=== PATIENT | male | born 1995 | race Two or more races ===

== ENCOUNTER 2018-11-02 01:52 | Emergency (ER) | payer OTHER ==
[2018-11-02] MEDS ORDERED: NORMAL SALINE 1000 ML 1,000 ML IV ONE (02:35)
[2018-11-02] MEDS ORDERED: METOCLOPRAMIDE HCL INJ/PF 10 MG/2 ML SDV IV ONE (02:35)
--- NOTE | 2018-11-02 02:38 | ER Document Report ---
ED General - General Chief Complaint: Nausea/Vomiting Stated Complaint: NUMBNESS Notes: Patient is a pleasant 23-year-old male who presents with complaint of sudden onset of nausea and chills. This is followed closely by a headache. Symptoms started approximately 2 hours ago. Before the symptoms started he felt fine. All symptoms came on abruptly. No chest pain. No neck pain. No back pain. No abdominal pain. No diarrhea. No recent history of fever illness. He takes no medications and is otherwise healthy. This has never happened before. He denies any drug or alcohol use. No recent sick contacts. TRAVEL OUTSIDE OF THE [place] IN LAST 30 DAYS: No - Related Data Allergies/Adverse Reactions: No Known Allergies Allergy (Unverified 11/02/18 07:50) Past Medical History - Social History Smoking Status: Never Smoker Frequency of alcohol use: None Drug Abuse: None Family History: Reviewed & Not Pertinent Review of Systems - Review of Systems Notes: My Normal Review Basic REVIEW OF SYSTEMS: CONSTITUTIONAL : Denies fever, chills, or sweats. Denies recent illness. EENT: Denies eye, ear, throat, or mouth pain or symptoms. Denies nasal or sinus congestion. CARDIOVASCULAR: Denies chest pain. RESPIRATORY: Denies cough, cold, or chest congestion. Denies shortness of breath, difficulty breathing, or wheezing. GASTROINTESTINAL: Denies abdominal pain. Vomiting MUSCULOSKELETAL: Denies neck or back pain or joint pain or swelling. SKIN: Denies rash or skin lesions. NEUROLOGICAL: Denies altered mental status or loss of consciousness. Has a headache. Denies weakness or paralysis or loss of use of either side. Denies problems with gait or speech. Denies sensory or motor loss. ALL OTHER SYSTEMS REVIEWED AND NEGATIVE. Physical Exam - Vital signs Vitals: Temp Pulse Resp BP Pulse Ox 97.4 F 122 H 22 H 112/66 100 11/02/18 02:01 11/02/18 02:01 11/02/18 02:01 11/02/18 02:01 11/02/18 02:01 - Notes Notes: General Appearance: Well nourished, alert, cooperative, no acute distress, moderate obvious discomfort. Patient is diaphoretic Vitals: reviewed, See vital signs table. Head: no swelling or tenderness to the head Eyes: PERRL, EOMI, Conjuctiva clear Mouth: No decreasd moisture Throat: No tonsillar inflammation, No airway obstruction, No lymphadenopathy Neck: Supple, no neck tenderness, No thyromegaly Lungs: No wheezing, No rales, No rhonci, No accessory muscle use, good air exchange bilaterally. Heart: Tachycardic rate, Regular rythm, No murmur, no rub Abdomen: Normal BS, soft, No rigidity, No abdominal tenderness, No guarding, no rebound, no abdominal masses, no organomegaly Extremities: strength 5/5 in all extremities, good pulses in all extremities, no swelling or tenderness in the extremities, no edema. Skin: warm, dry, appropriate color, no rash Neuro: speech clear, oriented x 3, normal affect, responds appropriately to questions. Cranial nerves II through XII are intact. Patient has some obvious photophobia. Strength in all 4 extremities. No focal neurologic deficits on exam. Course - Re-evaluation Re-evalutation: 11/02/18 03:20 On reevaluation patient is feeling improved with nausea medicine. Heart rate is still slightly tachycardic but better than it was. He is currently receiving his IV fluid bolus. Lab work is pending. I did review the CT scan. I do not see evidence of bleeding at this time. I am awaiting radiologist official report. 11/02/18 06:30 Patient's lab work is back and does not show any abnormality other than his elevated white blood cell count which is not surprising that he came in diaphoretic and vomiting. His nausea is much from approved. He would like to drink some water. We will give him a dose of Zofran being that the effect of Reglan is probably going to wear off soon. He still has a little bit of a headache. I will give him a dose of Toradol. He continues be afebrile. Continues have full range of motion of his neck. Weekly currently looks very well and his vital signs have normalized and is no longer tachycardic. I therefore have low suspicion for meningitis and at this time do not feel need to go forward with lumbar puncture. - Vital Signs Vital signs: Temp Pulse Resp BP Pulse Ox 97.4 F 122 H 22 H 112/66 100 11/02/18 02:01 11/02/18 02:01 11/02/18 02:01 11/02/18 02:01 11/02/18 02:01 - Laboratory Result Diagrams: 11/02/18 03:13 11/02/18 03:13 Laboratory results interpreted by me: 11/02/18 11/02/18 03:13 03:13 WBC 18.0 H Seg Neutrophils % 88.8 H Lymphocytes % 6.7 L Absolute Neutrophils 16.0 H Glucose 119 H ALT 20 L - Transfer of Care Notes: 11/02/18 08:07 Patient is feeling improved. Patient looks well. Nausea is gone. Headache is improved after Toradol. Feel that he is safe to be discharged home. I informed him that he should continue to improve. I have prescribed some nausea medicine. I encouraged him to return to the ER if he has recurrent vomiting, recurring headaches, fevers, or if he feels like he is worsening in any way. Patient agrees with plan will be discharged home. Discharge - Discharge Clinical Impression: Vomiting Qualifiers: Vomiting type: unspecified Vomiting Intractability: intractable Nausea presence: with nausea Qualified Code(s): R11.2 - Nausea with vomiting, unspecified Headache Qualifiers: Headache type: unspecified Headache chronicity pattern: acute headache Intractability: not intractable Qualified Code(s): R51 - Headache Condition: Good Disposition: HOME, SELF-CARE Additional Instructions: Your laboratory evaluation was unremarkable except for an elevated white blood cell count. This could be related to stress in the body from the vomiting ot from an infection such as a viral infectrion or bacterial infection. Currently I do not see any further evidence of a bacterial infection. We did do a CT scan of your head when you first arrived to make sure there is no evidence of bleeding in your head being that all your symptoms started suddenly. Your CT scan is normal-appearing. Currently the remainder of your blood work is normal- appearing and your vital signs are normal and therefore we feel you are safe to be discharged home. Even though you are improved and you look well, we want you to still have a low threshold to return to the ER if you have any fevers, abdominal pain, recurring headaches, intractable vomiting, or any neck pain or neck stiffness. Prescriptions: Ondansetron [Zofran Odt 4 mg Tablet] 1 tab PO Q4H PRN #15 tab.rapdis PRN Reason: For Nausea/Vomiting
--- NOTE | 2018-11-02 03:21 | RADIOLOGY REPORT (SQ) ---
EXAM DESCRIPTION: CT HEAD WITHOUT IV CONTRAST COMPLETED DATE/TME: 11/02/2018 02:35 CLINICAL HISTORY: 23 years Male, headache COMPARISON: None. TECHNIQUE: No contrast. Coronal and sagittal reformat. This exam was performed according to our departmental dose-optimization program, which includes automated exposure control, adjustment of the mA and/or kV according to patient size and/or use of iterative reconstruction technique. FINDINGS: No hemorrhage or infarct. No mass, mass effect, or midline shift. Mild maxillary mucosal thickening includes a 1.5 cm left maxillary mucocele-retention cyst. Brain and extra-axial structures appear otherwise intact. IMPRESSION: No acute findings. Mild chronic maxillary sinusitis.
[2018-11-02 03:23] LABS: ABSOLUTE EOSINOPHILS # (AUTO) 0.1 10^3/uL (0.0-0.6); ABSOLUTE LYMPHOCYTES (AUTO) 1.2 10^3/uL (0.5-4.7); ABSOLUTE MONOCYTES (AUTO) 0.7 10^3/uL (0.1-1.4); BASOPHILS % (AUTO) 0.1 % (0-2); EOSINOPHILS % (AUTO) 0.5 % (0-6); HEMATOCRIT 45.8 % (37.9-51.0); HEMOGLOBIN 15.9 g/dL (13.5-17.0); LYMPHOCYTES % (AUTO) 6.7 % (13-45); MEAN CORPUSCULAR HEMOGLOBIN 30.2 pg (27.0-33.4); MEAN CORPUSCULAR HGB CONC 34.8 g/dL (32.0-36.0); MEAN CORPUSCULAR VOLUME 87 fl (80-97); MONOCYTES % (AUTO) 3.9 % (3-13); PLATELET COUNT 287 10^3/uL (150-450); RED BLOOD COUNT 5.28 10^6/uL (4.35-5.55); RED CELL DISTRIBUTION WIDTH 12.6 % (11.5-14.0); SEGMENTED NEUTROPHILS % (AUTO) 88.8 % (42-78); TOTAL CELLS COUNTED % (AUTO) 100 %
[2018-11-02 03:48] LABS: ALANINE AMINOTRANSFERASE 20 U/L (21-72); ALBUMIN 4.8 g/dL (3.5-5.0); ALKALINE PHOSPHATASE 77 U/L (38-126); ANION GAP 12 (5-19); ASPARTATE AMINO TRANSFERASE 19 U/L (17-59); BILIRUBIN,DIRECT 0.2 mg/dL (0.0-0.4); BILIRUBIN,TOTAL 1.3 mg/dL (0.2-1.3); BLOOD UREA NITROGEN 18 mg/dL (7-20); CALCIUM 9.6 mg/dL (8.4-10.2); CARBON DIOXIDE 27 mmol/L (22-30); CHLORIDE 101 mmol/L (98-107); GLUCOSE 119 mg/dL (75-110); LIPASE 101.6 U/L (23-300); POTASSIUM 3.9 mmol/L (3.6-5.0); SODIUM 139.6 mmol/L (137-145); TOTAL PROTEIN 7.8 g/dL (6.3-8.2)
[2018-11-02] MEDS ORDERED: ONDANSETRON HCL INJ/PF 4 MG/2 ML SDV IV ONE (06:30)
[2018-11-02] MEDS ORDERED: KETOROLAC TROMETHAMINE INJ/PF 30 MG/1 ML SDV IV ONE (06:30)
[2018-11-02] MEDS ORDERED: ONDANSETRON ODT 4 MG TAB (6 TAB/ER DISP) PO PRN (08:01)
[2018-11-02 08:39] VITALS: BP 99/53
--- NOTE | 2018-11-02 09:46 | EKG REPORT ---
SEVERITY:- OTHERWISE NORMAL ECG - SINUS TACHYCARDIA BORDERLINE RIGHT AXIS DEVIATION : Confirmed by: Gretchen Saravia 02-Nov-2018 09:46:33
== END 2018-11-02 08:39 | disposition home or self-care (01) ==
LOC: ER 01:52
DX: R11.2 Nausea with vomiting, unspecified (principal); R51 Headache; R20.0 Anesthesia of skin
CPT/HCPCS: 93005; 99284; 96361; 96374; 96375; 36415; 83690; 85025; 80053; 70450; 93010; J1885; J2765; J2405; J7030